=== PATIENT | male | born 1975 | race Caucasian/White ===

== ENCOUNTER 2025-07-13 14:07 | Emergency (ER) | payer SELFPAY ==
[2025-07-13 14:11] VITALS: BP 163/99; PULSE 82; TEMP 36.5; O2SAT 96; BMI 26.6
--- NOTE | 2025-07-13 14:20 | ED_ITS ---
HPI - Extremity Problem 2 General: Chief complaint: Extremity Problem,Nontraumatic Stated complaint: R leg swelling, pain, discoloration Time Seen by Provider: 07/13/25 14:16 Source: patient and family Mode of arrival: ambulatory Limitations: no limitations History of Present Illness: Patient is a 49-year-old male who presents to ED today along with his daughter for evaluation of pain, swelling, ecchymosis involving his right lower leg. Patient has a history of Factor V Leiden and takes Warfarin. Patient states his goal INR is 2.5?3.5. Reports a previous DVT/PE several years ago but has not had any since. He has been compliant on his anticoagulation. 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 He has noticed some swelling to his anterior right knee. He denies any injury or trauma to the leg to cause the bruising. MD Complaint: extremity pain and extremity swelling Onset (ago): day(s) Pain Consistency: constant Location: right and lower extremity Radiation: none Relieving factors: nothing Exacerbating factors: weight bearing and walking Associated symptoms: Reports no associated symptoms; Deny chest pain or fever(s) Context: history of DVT Related Data Home Medications ?Medication ?Instructions ?Recorded ?Confirmed warfarin 5 mg tablet See Rx Instructions .Route . COMPLEX 07/13/25 07/13/25 Allergies Allergy/AdvReac Type Severity Reaction Status Date / Time No Known Allergies Allergy Verified 07/13/25 14:15 Review of Systems 2 Const: Denies: fever(s), chills, body aches, fatigue or malaise Card: Denies: chest pain Resp: Denies: dyspnea Musc: Reports: extremity pain, extremity swelling and joint pain (R knee); Denies: neck pain or back pain Skin/Breast: Reports: other (ecchymosis R lower leg) Neuro: Denies: numbness in extremities, weakness in extremities, sensory changes or difficulty walking Physical Exam 2 Const: COMMON NORMALS: no acute distress, average body habitus, patient oriented x3, no limitations, healthy appearing, alert and well nourished Resp: COMMON NORMALS: normal respiratory effort Cardio: COMMON NORMALS: regular rate and regular rhythm RATE: regular rate RHYTHM: regular rhythm Extremity: COMMON NORMALS: full ROM and capillary refill normal GENERAL: Y es normal exam except as noted RIGHT LOWER EXTREMITY: Yes knee joint, Yes lower leg, Yes foot & digits and Yes foot & digits OTHER: pt has mild edema R anterior knee w/o erythema/warmth; full ROM to knee joint; he has edema to lower R leg with ecchymosis around ankle/foot; he does not appear to have any bony tenderness, negative Oliver's; distal pulses/sensation/cap refill are all normal Neuro: COMMON NORMALS: patient oriented x3, moves all extremities, no focal motor deficits and no sensory deficits noted SENSORIUM/ORIENTATION: Yes alert Course 2 Vital Signs: Vital signs: Vital Signs Temperature 97.7 F 07/13/25 14:11 Pulse Rate 67 07/13/25 15:15 Blood Pressure 132/94 07/13/25 15:15 Pulse Oximetry 96 07/13/25 15:15 Oxygen Delivery Me thod Room Air 07/13/25 14:11 MDM - Extremity (Nontraumatic) Medical Decision Making US imaging of his right leg showing no DVT. Blood work overall is unremarkable apart from a mildly supratherapeutic INR at 3.87. He states normally when he is supratherapeutic, he will decrease his next dose of warfarin by 50% before resuming at normal dosing. I think this is appropriate. Recommend he follow-up with primary care for further evaluation of leg swelling and repeat INR later this week/early next week. Discussed conservative therapy including ice, elevation, NSAIDS, rest. Without history of trauma/injury no XRs were performed on today's visit. Medical Records I reviewed the patient's medical records. Lab Data I reviewed the patient's lab results. 07/13/25 14:45 07/13/25 14:45 Laboratory Results WBC 6.45 10^3/uL (3.29-11.43) 07/13/25 14:45 RBC 4.58 10^6/uL (3.85-5.65) 07/13/25 14:45 Hgb 13.80 g/dL (11.27-16.99) 07/13/25 14:45 Hct 40.9 % (37-53) 07/13/25 14:45 MCV 89.3 fl (82-101) 07/13/25 14:45 MCH 30.1 pg (27-33) 07/13/25 14:45 MCHC 33.7 g/dL (30-55) 07/13/25 14:45 RDW 12.3 % (12.1-15.1) 07/13/25 14:45 Plt Count 237 10^3/cmm (157-399) 07/13/25 14:45 MPV 9.8 fL (7.4-10.4) 07/13/25 14:45 Neut % (Auto) 69.0 % 07/13/25 14:45 Lymph % (Auto) 21.9 % 07/13/25 14:45 Worth % (Auto) 7.4 % 07/13/25 14:45 Eos % (Auto) 1.2 % 07/13/25 14:45 Baso % (Auto) 0.3 % 07/13/25 14:45 Neut # (Auto) 4.45 10^3/uL (1.8-7.7) 07/13/25 14:45 Lymph # (Auto) 1.4 10^3/uL (0.8-4.8) 07/13/25 14:45 Worth # (Auto) 0.5 10^3/uL (0.2-0.9) 07/13/25 14:45 Eos # (Auto) 0.1 10^3/uL (0.0-0.8) 07/13/25 14:45 Baso # (Auto) 0.0 10^3/uL (0.0-0.1) 07/13/25 14:45 Nucleated RBC % (auto) 0 % 07/13/25 14:45 Nucleated RBCs # 0.0 /100WBC 07/13/25 14:45 PT 40.00 SECONDS (12.1-14.9) H 07/13/25 14:45 INR 3.87 (0.8-1.2) H 07/13/25 14:45 Sodium 138 mmol/L (136-145) 07/13/25 14:45 Potassium 3.7 mmol/L (3.5-5.1) 07/13/25 14:45 Chloride 103 mmol/L (98-107) 07/13/25 14:45 Carbon Dioxide 25 mmol/L (22-29) 07/13/25 14:45 Anion Gap 13.7 (5-19) 07/13/25 14:45 BUN 19 mg/dL (6-20) 07/13/25 14:45 Creatinine 0.9 mg/dL (0.7-1.2) 07/13/25 14:45 GFR Calculation 89.3 mL/min (90-130) L 07/13/25 14:45 Glucose 98 mg/dL (65-115) 07/13/25 14:45 Calculated Osmolality 288 mOsm/kg (285-295) 07/13/25 14:45 Calcium 8.9 mg/dL (8.5-10.5) 07/13/25 14:45 Total Bilirubin 0.4 mg/dL (0.15-1.2) 07/13/25 14:45 AST 25 U/L (0-40) 07/13/25 14:45 ALT 27 U/L (0-41) 07/13/25 14:45 Alkaline Phosphatase 64 U/L (40-130) 07/13/25 14:45 Total Protein 6.8 g/dL (6.6-8.7) 07/13/25 14:45 Albumin 3.9 g/dL (3.5-5.2) 07/13/25 14:45 Globulin 2.9 g/dL (1.3-4.6) 07/13/25 14:45 XR interpretation done by ED provider, pending radiology final review (per [facility]-no DVT) Discharge Plan Discharge Patient Disposition: Home Clinical Impression: Edema of right lower extremity Condition: Stable Prescriptions: No Action warfarin 5 mg tablet See Rx Instructions .ROUTE .COMPLEX Rx Instructions: Take 1.5 tablets by mouth daily in the evening 6 days a week and take 10mg on day 7. Discharge Orders: Discharge ED (Routine); Ordered 07/13/25 Ordered By: Renetta Mosley Patient Instructions: Patient Portal & Corey Instructions Activity Restrictions/Additional Instructions: As we discussed, INR was slightly high here at 3.87. We have discussed cutting your dose in half tomorrow and then resume normal dosing and have INR re-checked through primary care later this week/early next week. US imaging did not show a DVT/blood clot to your leg. Print Language: Swedish Coding Level of Care Code ED [facility] [employer] Director for Latrice Gonzalez
--- NOTE | 2025-07-13 14:40 | USCV_ITS ---
Demario Christian Age: 49 Gender: M : 1975 Exam Date: 07/13/2025 15:22 Ordering Phys: Renetta Mosley Technologist: ELIZABET Exam Location: [facility] [place] Indication: LE Pain/swelling HISTORY: Lower extremity pain. Lower extremity swelling. PROCEDURES: Venous duplex imaging was performed in only the right lower extremity. The following venous structures were evaluated: common femoral vein, profunda vein, proximal portion of the greater saphenous vein, superficial femoral vein, and the popliteal vein. In addition, the posterior tibial and peroneal trunk were evaluated. Serial compression, augmentation maneuvers, and spectral Doppler flow evaluation were performed. FINDINGS: No evidence of DVT seen in any vessel visualized at this time. CONCLUSIONS No evidence of right lower extremity DVT. Harrison Sandoval MD (Electronically Signed) Final Date: 13 July 2025 16:29 S
[2025-07-13 15:15] VITALS: BP 132/94; PULSE 67; O2SAT 96
[2025-07-13 15:28] LABS: Hematocrit 40.9 % (37-53); Hemoglobin 13.80 g/dL (11.27-16.99); Mean Corpuscular HGB Conc 33.7 g/dL (30-55); Mean Corpuscular Hemoglobin 30.1 pg (27-33); Mean Corpuscular Volume 89.3 fl (82-101); Nucleated Red Blood Cells % 0 %; Platelet Count 237 10^3/cmm (157-399); Red Blood Count 4.58 10^6/uL (3.85-5.65); White Blood Count 6.45 10^3/uL (3.29-11.43)
[2025-07-13 15:42] LABS: INR 3.87 (0.8-1.2); Prothrombin Time 40.00 SECONDS (12.1-14.9)
[2025-07-13 15:45] LABS: Alanine Aminotransferase 27 U/L (0-41); Albumin Level 3.9 g/dL (3.5-5.2); Alkaline Phosphatase 64 U/L (40-130); Anion Gap 13.7 (5-19); Aspartate Amino Transferase 25 U/L (0-40); Blood Urea Nitrogen 19 mg/dL (6-20); Calcium 8.9 mg/dL (8.5-10.5); Carbon Dioxide 25 mmol/L (22-29); Chloride 103 mmol/L (98-107); Creatinine Clr Calc Pharmacy 104.2761; Globulin 2.9 g/dL (1.3-4.6); Glucose 98 mg/dL (65-115); Osmolality Calculated 288 mOsm/kg (285-295); Potassium 3.7 mmol/L (3.5-5.1); Sodium 138 mmol/L (136-145); Total Protein 6.8 g/dL (6.6-8.7)
[2025-07-13 16:11] VITALS: BP 132/98; PULSE 65; RESP 18; O2SAT 98
== END 2025-07-13 16:12 | disposition home or self-care (01) ==
PROVIDERS: Emergency Provider Physician Assistant
DX: R60.0 Localized edema (principal); Z79.01 Long term (current) use of anticoagulants
CPT/HCPCS: 36415; 80053; 85025; 85610; 93971; 99284